=== PATIENT | female | born 1935 | race Caucasian/White ===

== ENCOUNTER 2016-06-16 10:08 | Inpatient (IN) | payer OTHER ==
[~2016-06-16] VITALS: Ht 157.5 cm; Wt 59.4 kg
[2016-06-16] VITALS (10 sets, daily range): BP systolic 96–158; BP diastolic 61–93
[~2016-06-16 10:08] MED LIST: ACTONEL150 MG PO; ATENOLOL25 MG PO; ATENOLOL50 MG PO; CALCIUM 500 MG1 EACH PO; CEPHALEXIN500 MG PO; CIPRO500 MG PO; CONZIP100 MG PO; DAILY VALUE1 EACH PO; LOVENOX40 MG/0.4 SC; METOPROLOL TART25 MG PO; MULTIVITAMIN1 EAC2 PO; PROMACTA50 MG PO; SANDIMMUNE100 MG; SANDIMMUNE100 MG PO; SKELAXIN800 MG PO; TENORMIN25 MG PO; TENORMIN50 MG PO; Vitamin B-12 SC
[2016-06-16 11:16] LABS: HEMATOCRIT 33.1 % (36.0-46.0); MCH 31.3 PG (29.0-34.0); MCHC 33.8 G/DL (30.0-36.0); MCV 92.5 FL (83-99); RBC DIS.WIDTH-CV 18.6 % (11.8-14.6); RBC DIS.WIDTH-SD 58.1 % (39-53); RED BLOOD COUNT 3.58 M/uL (3.80-5.20); WHITE BLOOD COUNT 2.1 K/uL (4.1-10.2)
[2016-06-16 11:21] LABS: CHLORIDE 104 mEq/L (99-109); POTASSIUM 4.6 mEq/L (3.7-5.4); SODIUM 141 mEq/L (136-147)
[2016-06-16 11:23] LABS: GLUCOSE 128 mg/dL (70-99)
[2016-06-16 11:24] LABS: ANION GAP 8 MEQ/L (2-14)
[2016-06-16 11:25] LABS: TOTAL BILIRUBIN 0.8 mg/dL (0.0-1.0)
[2016-06-16 11:27] LABS: ALKALINE PHOSPHATASE 104 IU/L (3-129); GFR ESTIMATE (CALCULATED) 51 mL/min/
[2016-06-16 11:28] LABS: UREA NITROGEN (BUN) 25 mg/dL (9-23)
[2016-06-16 12:05] LABS: IMM.PLATELET FRACTION 4.6 (1-7); MEAN PLAT.VOLUME 9.2 uM^3 (9.5-12.4)
[2016-06-16 12:06] LABS: PLATELET COUNT 8 K/uL (156-360)
[2016-06-16] MEDS ORDERED: PROAIR HFA8.5 GM IH (12:37)
[2016-06-16] MEDS ORDERED: SF56 GM DT (12:37)
[2016-06-16] MEDS ORDERED: ALPHAGAN P100 DROP/5 RIGHT EYE (12:37)
[2016-06-16 13:01] LABS: INTER. NORMALIZED RATIO 1.1; PROTHROMBIN TIME 10.7 (9.2-11.2); PTT 26.4 (25-32)
[2016-06-16 18:56] LABS: HEMATOCRIT 28.3 % (36.0-46.0); MCH 31.7 PG (29.0-34.0); MCHC 34.3 G/DL (30.0-36.0); MCV 92.5 FL (83-99); RBC DIS.WIDTH-CV 18.5 % (11.8-14.6); RED BLOOD COUNT 3.06 M/uL (3.80-5.20)
[2016-06-16 19:05] LABS: MEAN PLAT.VOLUME 9.4 uM^3 (9.5-12.4)
[2016-06-16 19:06] LABS: EOSINOPHIL (%) 0.6 % (0-5); IMMATURE GRANULOCYTE (%) 0.6 % (0.0-0.7); INSTRUMENT ABS NEUTROPHIL CT 0.8 K/uL; LYMPHOCYTE COUNT 0.7 K/uL (1.0-2.8); MONOCYTE (%) 12.6 % (3-12); MONOCYTE COUNT 0.2 K/uL (0-0.8); NEUTROPHIL (%) 45.4 % (45-76); NEUTROPHIL COUNT 0.8 K/uL (1.8-6.4); PLATELET COUNT 71 K/uL (156-360); WHITE BLOOD COUNT 1.7 K/uL (4.1-10.2)
[2016-06-17] VITALS (18 sets, daily range): BP systolic 103–132; BP diastolic 54–81
[2016-06-17 07:10] LABS: ALKALINE PHOSPHATASE 85 IU/L (3-129); ANION GAP 6 MEQ/L (2-14); CHLORIDE 102 MEQ/L (99-109); GFR ESTIMATE (CALCULATED) 51 mL/min/; GLUCOSE 108 mg/dL (70-99); POTASSIUM 4.3 MEQ/L (3.7-5.4); SAMPLE HEMOLYSIS CHECK 0; SAMPLE ICTERIC CHECK 0; SAMPLE LIPEMIA CHECK 0; SODIUM 139 MEQ/L (136-147); TOTAL BILIRUBIN 0.9 MG/DL (0.0-1.0); UREA NITROGEN (BUN) 27 mg/dL (9-23)
[2016-06-17 07:20] LABS: HEMATOCRIT 28.1 % (36.0-46.0); MCH 30.8 PG (29.0-34.0); MCHC 33.1 G/DL (30.0-36.0); MEAN PLAT.VOLUME 8.5 uM^3 (9.5-12.4); PLATELET COUNT 58 K/uL (156-360); RBC DIS.WIDTH-CV 18.6 % (11.8-14.6); RBC DIS.WIDTH-SD 58.5 % (39-53); RED BLOOD COUNT 3.02 M/uL (3.80-5.20)
[2016-06-17 07:22] LABS: WHITE BLOOD COUNT 1.7 K/uL (4.1-10.2)
[2016-06-17 16:52] LABS: HEMATOCRIT 27.1 % (36.0-46.0); MCH 31.4 PG (29.0-34.0); MCHC 33.6 G/DL (30.0-36.0); MCV 93.4 FL (83-99); MEAN PLAT.VOLUME 9.5 uM^3 (9.5-12.4); RBC DIS.WIDTH-CV 18.6 % (11.8-14.6)
[2016-06-17 17:02] LABS: PLATELET COUNT 142 K/uL (156-360); WHITE BLOOD COUNT 1.2 K/uL (4.1-10.2)
[2016-06-18 04:45] VITALS: BP 118/66
[2016-06-18 06:23] LABS: HEMATOCRIT 25.3 % (36.0-46.0); MCH 31.1 PG (29.0-34.0); MCHC 33.2 G/DL (30.0-36.0); MCV 93.7 FL (83-99); MEAN PLAT.VOLUME 10.3 uM^3 (9.5-12.4); PLATELET COUNT 129 K/uL (156-360); RBC DIS.WIDTH-CV 18.6 % (11.8-14.6); RBC DIS.WIDTH-SD 59.1 % (39-53)
[2016-06-18 06:26] LABS: ANION GAP 5 MEQ/L (2-14); CHLORIDE 103 MEQ/L (99-109); GFR ESTIMATE (CALCULATED) 57 mL/min/; GLUCOSE 114 mg/dL (70-99); HDL CHOLESTEROL 51 MG/DL (Desirable>=50); LDL CHOLESTEROL 148 mg/dL (Desirable<100); NON-HDL CHOLESTEROL 172 mg/dL (Desirable<160); SAMPLE HEMOLYSIS CHECK 0; SAMPLE ICTERIC CHECK 0; SAMPLE LIPEMIA CHECK 0; SODIUM 139 MEQ/L (136-147); TOTAL CHOLESTEROL 223 mg/dL (Desirable<200); TRIGLYCERIDES 118 MG/DL (Normal: <150); UREA NITROGEN (BUN) 23 mg/dL (9-23)
[2016-06-18 06:48] LABS: WHITE BLOOD COUNT 1.5 K/uL (4.1-10.2)
[2016-06-18 07:26] VITALS: BP 122/70
[2016-06-18] MEDS ORDERED: PRAVASTATIN SOD80 MG PO (09:48)
[2016-06-18] MEDS ORDERED: CYANOCOBALAM1000 MCG PO (09:54)
== END 2016-06-18 10:50 | disposition home or self-care (01) | DRG 65 ==
LOC: EME 10:08 → 3EAST 14:35 → EDOF 14:35 → 4EAST 14:35 → EDOF 17:23 → 4EAST 20:06 → 3EAST 06-17 21:13
PROVIDERS: Hospitalist; Nurse Practitioner Family
PROC: 30233R1 Transfusion of Nonautologous Platelets into Peripheral Vein, Percutaneous Approach (ICD-10-PCS; principal; 2016-06-17)
PROC: 30233K1 Transfusion of Nonautologous Frozen Plasma into Peripheral Vein, Percutaneous Approach (ICD-10-PCS; 2016-06-17)
DX: I60.9 Nontraumatic subarachnoid hemorrhage, unspecified (principal); D61.9 Aplastic anemia, unspecified; M84.459A Pathological fracture, hip, unspecified, initial encounter for fracture; E78.5 Hyperlipidemia, unspecified; D69.6 Thrombocytopenia, unspecified; R55 Syncope and collapse; I10 Essential (primary) hypertension; E11.9 Type 2 diabetes mellitus without complications; E53.8 Deficiency of other specified B group vitamins
CPT/HCPCS: 70450; 80048; 80053; 80061; 82607; 85025; 85027; 85610; 85730; 86850; 86900; 86901; 93880; 99202; 99281; 99285; P9017; P9035

== ENCOUNTER → 2016-09-08 | Outpatient (CLI) | payer OTHER ==
[~2016-09-08] MED LIST changes: +ALPHAGAN P100 DROP/5 RIGHT EYE; +CYANOCOBALAM1000 MCG PO; +PRAVASTATIN SOD80 MG PO; +PROAIR HFA8.5 GM IH; +SF56 GM DT; +VITAMIN B-122000 MC1 PO
[2016-09-08 12:08] VITALS: BP 86/54
[2016-09-08 13:06] VITALS: BP 106/58
[2016-09-08 13:58] VITALS: BP 86/51
[2016-09-08 14:28] VITALS: BP 107/62
[2016-09-08 14:53] VITALS: BP 116/65
[2016-09-08 15:23] VITALS: BP 110/66
== END | disposition home or self-care (01) ==
LOC: JMC 11:23
DX: D61.9 Aplastic anemia, unspecified (principal)
CPT/HCPCS: 36415; 82728; 85025; 86900; 86901; 86920; 86999; P9016

== ENCOUNTER 2017-04-07 08:31 | Inpatient (IN) | payer OTHER ==
[2017-04-07] VITALS (15 sets, daily range): BP systolic 129–164; BP diastolic 65–95
[~2017-04-07] VITALS: Ht 154.9 cm; Wt 66.5 kg
[2017-04-07 09:06] LABS: HEMATOCRIT 34.7 % (36.0-46.0); MCH 35.6 PG (29.0-34.0); MCHC 34.6 G/DL (30.0-36.0); RBC DIS.WIDTH-SD 77.4 % (39-53); RED BLOOD COUNT 3.37 M/uL (3.80-5.20); WHITE BLOOD COUNT 2.1 K/uL (4.1-10.2)
[2017-04-07 09:16] LABS: AMYLASE 59 IU/L (1-118); CHLORIDE 103 mEq/L (99-109); POTASSIUM 4.4 mEq/L (3.7-5.4); SODIUM 136 mEq/L (136-147)
[2017-04-07 09:18] LABS: GLUCOSE 137 mg/dL (70-99)
[2017-04-07 09:21] LABS: SERUM ETHYL ALCOHOL < 10 mg/dL
[2017-04-07 09:22] LABS: CREATININE 0.8 mg/dL (0.6-1.3); GFR ESTIMATE (CALCULATED) > 59 mL/min/; UREA NITROGEN (BUN) 26 mg/dL (9-23)
[2017-04-07 09:23] LABS: INTER. NORMALIZED RATIO 1.1
[2017-04-07 09:25] LABS: LIPASE 28 U/L (1.0-51.0)
[2017-04-07 09:27] LABS: TROP-I INTERPRETATION NEGATIVE; TROPONIN-I 0.01 ng/mL (0.0-0.30)
[2017-04-07 09:58] LABS: BASOPHIL (%) 0.5 % (0-1); IMM.PLATELET FRACTION 5.9 (1-7); IMMATURE GRANULOCYTE (%) 0.5 % (0.0-0.7); LYMPHOCYTE (%) 35.2 % (15-42); LYMPHOCYTE COUNT 0.7 K/uL (1.0-2.8); MONOCYTE (%) 12.4 % (3-12); MONOCYTE COUNT 0.3 K/uL (0-0.8); NEUTROPHIL (%) 50.4 % (45-76); NEUTROPHIL COUNT 1.1 K/uL (1.8-6.4); PLAT.SUFFICIENCY VERY DECREASED
[2017-04-07 10:01] LABS: PLATELET COUNT 12 K/uL (156-360)
[2017-04-07 15:03] LABS: HEMATOCRIT 32.6 % (36.0-46.0); HEMOGLOBIN 11.1 G/DL (11.9-15.5); MCH 35.1 PG (29.0-34.0); MCV 103.2 FL (83-99); RBC DIS.WIDTH-CV 20.7 % (11.8-14.6); RED BLOOD COUNT 3.16 M/uL (3.80-5.20)
[2017-04-07 15:10] LABS: PLATELET COUNT 56 K/uL (156-360)
[2017-04-08] VITALS (8 sets, daily range): BP systolic 105–149; BP diastolic 63–75
== END 2017-04-08 21:45 | DRG 65 ==
LOC: EME 08:31 → EDOF 09:37 → 4WEST 09:37 → 5EAST 09:37 → ENRESERV 09:38 → 4WEST 11:06 → ENRESERV 04-08 08:35 → 5EAST 04-08 15:37
PROVIDERS: Emergency Medicine; Internal Medicine Critical Care Medicine
PROC: 30233R1 Transfusion of Nonautologous Platelets into Peripheral Vein, Percutaneous Approach (ICD-10-PCS; principal; 2017-04-07)
DX: I61.8 Other nontraumatic intracerebral hemorrhage (principal); R40.20 Unspecified coma; D61.9 Aplastic anemia, unspecified; D69.6 Thrombocytopenia, unspecified; E86.0 Dehydration; R29.718 NIHSS score 18; Z51.5 Encounter for palliative care; Z66 Do not resuscitate; D32.9 Benign neoplasm of meninges, unspecified; I10 Essential (primary) hypertension; E78.5 Hyperlipidemia, unspecified; I73.9 Peripheral vascular disease, unspecified; I49.3 Ventricular premature depolarization; M85.80 Other specified disorders of bone density and structure, unspecified site; Z85.9 Personal history of malignant neoplasm, unspecified
CPT/HCPCS: 36415; 70450; 80048; 80053; 81003; 82150; 82607; 82728; 83690; 84484; 85025; 85027; 85610; 85730; 86850; 86900; 86901; 87641; G0480; J1165; J1953; J2270; J7030; J7040; J7050; P9035; S0028